=== PATIENT | female | born 1945 | race Two or more races ===

== ENCOUNTER → 2019-03-21 | Outpatient (CLI) | payer OTHER ==
[2018-05-03 14:36] VITALS: BP 178/98
[~2019-03-21] MED LIST: AMIT25TA PO; AMLO2.5T5 PO; CLON0.5T11 PO; DICY10CA53 PO; HYDR10SY16 PO; HYDR30CR60 RC; LORA10TA3 PO; OMEP40CA5 PO; PENT100C PO; POTA10TA12 PO; RANI-376 PO; TRAM50TA PO
--- NOTE | 2019-03-21 16:48 | RAD ---
EXAM: Thyroid sonogram. HISTORY: Thyroid nodule. TECHNIQUE: Sonographic imaging of the thyroid was performed. COMPARISON: CT dated 05/03/2018. FINDINGS: The right there are lobe measures 5.3 x 2.0 x 1.9 cm. The left thyroid lobe measures 4.6 x 1.7 x 1.6 cm. The isthmus measures 2 mm. The thyroid parenchyma is diffusely heterogeneous and contains small cysts and nodules. The largest nodule is hypoechoic and within the mid inferior left thyroid lobe measuring 12 x 8 x 10 mm. There are several thyroid calcifications. IMPRESSION: Diffusely heterogeneous thyroid containing multiple small nodules and calcifications. The largest is solid nodule is seen on the left measuring 12 mm. This is minimally increased compared to the prior neck CT, allowing for differences in imaging modality. Electronically signed by: Janina Hernadez MD (03/21/2019 4:44 PM) [facility]
== END | disposition home or self-care (01) ==
LOC: US 15:40
PROVIDERS: ATTEND Specialist
DX: E04.2 Nontoxic multinodular goiter (principal)
CPT/HCPCS: 76536

== ENCOUNTER 2019-08-15 11:12 | Inpatient (IN) | payer OTHER ==
[~2019-08-15] VITALS: Ht 165.1 cm; Wt 52.2 kg
[~2019-08-15 11:12] MED LIST changes: +CLON-77 PO; -CLON0.5T11 PO; +HYDR12.59 PO; +METO-239 PO; +OMEP40CA45 PO; -OMEP40CA5 PO; +POTASSIUM CHLO10 ME1 PO
[2019-08-15] MEDS ORDERED: IV NORMAL SALINE 1000ML BAG 1,000 ML IV ONE (12:00)
--- NOTE | 2019-08-15 12:19 | PHYS DOC ---
Past Medical History Past Medical History: CAD, GERD, Hypertension, P.U.D., Renal Disease Additional Past Medical Histor: Blindness , GASTRITIS Past Surgical History: Pacemaker Additional Past Surgical Histo: EGD Alcohol Use: None Drug Use: None Adult General Chief Complaint Chief Complaint: WEAKNESS/GENERALIZED HPI HPI 74-year-old female presents with family members report multiple syncopal episodes over the last 2-3 days. Patient also reports generalized weakness. Family reports they were able to catch her to prevent her from hitting her head. Patient does report some increased urinary incontinence. Reports some urinary urgency. Denies chest pain. Denies shortness of air or cough. Patient does report some subjective fever/chills. Reports mild abdominal discomfort. Denies nausea or vomiting. Review of Systems Review of Systems Constitutional: Reports subjective fever and chills Eyes: Denies redness or eye pain HENT: Denies nasal congestion or sore throat Respiratory: Denies cough or shortness of breath Cardiovascular: Denies chest pain or palpitations GI: Reports abdominal pain,; denies nausea or vomiting : Reports urinary incontinence and urinary urgency Musculoskeletal: Denies back pain or joint pain Integument: Denies rash or skin lesions Neurologic: Denies headache or sensory changes; reports syncope and generalized weakness Complete systems were reviewed and found to be within normal limits, except as documented in this note. Current Medications Current Medications Current Medications Medications (Trade) Dose Ordered Sig/Juan Manuel Start Time Stop Time Status Last Admin Dose Admin Sodium Chloride 1,000 ml @ 1,000 mls/hr 1X ONCE 08/15/19 12:00 08/15/19 12:59 DC 08/15/19 12:52 1,000 MLS/HR Allergies Allergies Allergies Coded Allergies Type Severity Reaction Last Updated Verified No Known Drug Allergies 06/09/15 No Physical Exam Physical Exam Constitutional: Well developed, well nourished, no acute distress, non-toxic appearance HENT: Normocephalic, atraumatic, oropharynx moist Eyes: EOMI, bilateral blindness (baseline), conjunctiva normal, no discharge Neck: Normal range of motion, no tenderness, supple Cardiovascular: Heart rate normal, regular rhythm Lungs & Thorax: Bilateral breath sounds clear to auscultation, no wheezing Abdomen: Soft, no tenderness Skin: Warm, dry, no erythema, no rash Extremities: No tenderness, ROM intact, no edema Neurologic: Alert and oriented X 3, normal motor function, normal sensory function, no focal deficits noted Psychologic: Affect normal, judgement normal Current Patient Data Lab Values Laboratory Tests Test 08/15/19 12:05 08/15/19 12:45 White Blood Count 10.1 x10^3/uL (4.0-11.0) Red Blood Count 4.22 x10^6/uL (3.50-5.40) Hemoglobin 12.5 g/dL (12.0-15.5) Hematocrit 37.2 % (36.0-47.0) Mean Corpuscular Volume 88 fL (79-100) Mean Corpuscular Hemoglobin 30 pg (25-35) Mean Corpuscular Hemoglobin Concent 34 g/dL (31-37) Red Cell Distribution Width 14.1 % (11.5-14.5) Platelet Count 213 x10^3/uL (140-400) Neutrophils (%) (Auto) 75 % (31-73) H Lymphocytes (%) (Auto) 9 % (24-48) L Monocytes (%) (Auto) 15 % (0-9) H Eosinophils (%) (Auto) 1 % (0-3) Basophils (%) (Auto) 0 % (0-3) Neutrophils # (Auto) 7.6 x10^3/uL (1.8-7.7) Lymphocytes # (Auto) 0.9 x10^3/uL (1.0-4.8) L Monocytes # (Auto) 1.5 x10^3/uL (0.0-1.1) H Eosinophils # (Auto) 0.1 x10^3/uL (0.0-0.7) Basophils # (Auto) 0.0 x10^3/uL (0.0-0.2) Prothrombin Time 12.1 SEC (11.7-14.0) Prothrombin Time INR 0.9 (0.8-1.1) Activated Partial Thromboplast Time 30 SEC (24-38) Sodium Level 131 mmol/L (136-145) L Potassium Level 3.7 mmol/L (3.5-5.1) Chloride Level 94 mmol/L (98-107) L Carbon Dioxide Level 26 mmol/L (21-32) Anion Gap 11 (6-14) Blood Urea Nitrogen 25 mg/dL (7-20) H Creatinine 1.6 mg/dL (0.6-1.0) H Estimated GFR (Cockcroft-Gault) 31.7 BUN/Creatinine Ratio 16 (6-20) Glucose Level 116 mg/dL (70-99) H Lactic Acid Level 1.6 mmol/L (0.4-2.0) Calcium Level 9.1 mg/dL (8.5-10.1) Magnesium Level 2.3 mg/dL (1.8-2.4) Total Bilirubin 0.6 mg/dL (0.2-1.0) Aspartate Amino Transferase (AST) 28 U/L (15-37) Alanine Aminotransferase (ALT) 24 U/L (14-59) Alkaline Phosphatase 79 U/L (46-116) Creatine Kinase 44 U/L (26-192) Creatine Kinase MB (Mass) 1.2 ng/mL (0.0-3.6) Creatine Kinase MB Relative Index % (0-4) Troponin I Quantitative < 0.017 ng/mL (0.000-0.055) Total Protein 7.3 g/dL (6.4-8.2) Albumin 3.0 g/dL (3.4-5.0) L Albumin/Globulin Ratio 0.7 (1.0-1.7) L Lipase 310 U/L (73-393) Urine Collection Type Unknown Urine Color Yellow Urine Clarity Clear Urine pH 6.5 Urine Specific [place] 1.010 Urine Protein Negative mg/dL (NEG-TRACE) Urine Glucose (UA) Negative mg/dL (NEG) Urine Ketones (Stick) Negative mg/dL (NEG) Urine Blood Negative (NEG) Urine Nitrite Negative (NEG) Urine Bilirubin Negative (NEG) Urine Urobilinogen Dipstick 0.2 mg/dL (0.2 mg/dL) Urine Leukocyte Esterase Negative (NEG) Urine RBC 0 /HPF (0-2) Urine WBC 0 /HPF (0-4) Urine Squamous Epithelial Cells Occ /LPF Urine Bacteria 0 /HPF (0-FEW) Laboratory Tests 08/15/19 12:05 Laboratory Tests 08/15/19 12:05 EKG EKG @1124 NSR at 82bpm, NO ST elevation, t wave inversion III and aVF, RBBB Radiology/Procedures Radiology/Procedures PROCEDURE: PORTABLE CHEST 1V EXAM: Chest, single view. HISTORY: Syncope. COMPARISON: 07/05/2019 FINDINGS: A frontal view of the chest is obtained. There is no infiltrate, pleural effusion or pneumothorax. There is stable enlargement of the cardiac silhouette, slightly accentuated due to portable technique. There is suspected left greater than right apical pleural parenchymal scarring. There is a cardiac pacemaker in expected position. IMPRESSION: No acute pulmonary finding. Electronically signed by: Janina Hernadez MD (08/15/2019 12:46 PM) [facility] PROCEDURE: CT HEAD AND CERVICAL SPINE WO CT HEAD AND CERVICAL SPINE WO Indication: Syncope. Weakness. Exposure: One or more of the following individualized dose reduction techniques were utilized for this examination: 1. Automated exposure control 2. Adjustment of the mA and/or kV according to patient size 3. Use of iterative reconstruction technique. Technique: Standard imaging without intravenous contrast. COMPARISON: July 05, 2019 Head: No evidence of acute intracranial hemorrhage, mass effect, midline shift or abnormal extra-axial fluid collection. Ventricles and sulci are symmetric. Bilateral symmetric basal ganglia calcifications are incidentally noted. Low-density in the white matter bilaterally, a nonspecific finding, but which is commonly due to chronic small vessel ischemic disease in a patient of this age. Generalized atrophy again seen. No evidence of large scalp hematoma. Orbits appear unremarkable. The visualized sinuses are clear. No evidence of depressed skull fracture. IMPRESSION: Chronic findings are similar. No evidence of acute intracranial hemorrhage. Cervical spine: The skull base appears intact. Ring of C1 is intact. Cervico-occipital junction is intact. C1 and C2 appears symmetric. No evidence of acute fracture or aggressive bone destruction. Vertebral body height is intact. No evidence of spondylolisthesis or vertebral subluxation. Facet joints appear intact without evidence of perched or locked facet joint. Mild degenerative spondylosis with loss of disc height. No evidence of high-grade central osseous spinal stenosis. There appears to be some neural foraminal narrowing at multiple levels. Coarse markings in the left upper lung, similar to what was seen on the prior cervical spine CT, likely scarring. No significant prevertebral soft tissue swelling or hematoma. The visualized airway appears grossly patent and midline. No dominant thyroid mass. IMPRESSION: Degenerative spondylosis. No evidence of acute fracture or traumatic subluxation. Electronically signed by: Jj Philip MD (08/15/2019 12:38 PM) [facility] Course & Med Decision Making Course & Med Decision Making Pertinent Labs and Imaging studies reviewed. (See chart for details) Patient presents with syncopal episodes over the last few days. Patient also reports some urinary urgency and incontinence. Patient neurologically at baseline. History of baseline blindness. NIH SS 0. EKG stable. Labs obtained and posted to chart. Creatinine elevated but baseline in comparison to prior values per [employer] review. UA without signs of infection. CXR stable. CT head/cervical spine without acute process. Patient requiring admission for further evaluation and treatment. Discussed with Dr. Fox (taking admits for Dr. Wu, who admits for PCP) who is in agreement with admission. Discussed findings and plan with patient and family, who acknowledge understanding and agreement. Dragon Disclaimer Dragon Disclaimer This electronic medical record was generated, in whole or in part, using a voice recognition dictation system. Departure Departure Impression: Primary Impression: Syncope Disposition: ADMITTED INPATIENT Admitting Physician: Madi. Sainz (taking admission for Dr. Wu (who admits for PCP)) Condition: STABLE Referrals: PILAR LOVELACE (PCP) NIHSS Stroke Scale NIH Stroke Scale: NIH Stroke Scale Response (Comments) Value Level of Consciousness: 0 Alert/Responsive 0 LOC Questions: 0 Answers both correctly 0 LOC Commands: 0 Performs both tasks 0 Best Gaze: 0 Normal 0 Visual: 0 No visual loss (Patient baseline blind ness) 0 Facial Palsy: 0 Normal, symmetrical 0 Motor - Left Arm 0 No drift 0 Motor - Right Arm 0 No drift 0 Motor - Left Leg 0 No drift 0 Motor: Right Leg 0 No drift 0 Limb Ataxia: 0 Absent 0 Sensory: 0 No loss 0 Best Language: 0 Normal 0 Dysathria: 0 Normal 0 Extinction and Inattention: 0 Normal 0 Total 0 Problem Qualifiers Primary Impression: Syncope Syncope type: unspecified Qualified Codes: R55 - Syncope and collapse JJ JUAREZ DO Aug 15, 2019 12:19
[2019-08-15 12:29] LABS: BASO % 0 % (0-3); EOS # 0.1 x10^3/uL (0.0-0.7); EOS % 1 % (0-3); HEMATOCRIT 37.2 % (36.0-47.0); HEMOGLOBIN 12.5 g/dL (12.0-15.5); LYMPH # 0.9 x10^3/uL (1.0-4.8); LYMPH % 9 % (24-48); MEAN CORPUSCULAR HEMOGLOBIN 30 pg (25-35); MEAN CORPUSCULAR HGB CONC 34 g/dL (31-37); MEAN CORPUSCULAR VOLUME 88 fL (79-100); MONO # 1.5 x10^3/uL (0.0-1.1); MONO % 15 % (0-9); NEUT # 7.6 x10^3/uL (1.8-7.7); NEUT % 75 % (31-73); PLATELET COUNT 213 x10^3/uL (140-400); RED BLOOD COUNT 4.22 x10^6/uL (3.50-5.40); RED CELL DISTRIBUTION WIDTH 14.1 % (11.5-14.5); WHITE BLOOD COUNT 10.1 x10^3/uL (4.0-11.0)
[2019-08-15 12:39] LABS: PROTHROMBIN TIME PATIENT 12.1 SEC (11.7-14.0)
--- NOTE | 2019-08-15 12:41 | RAD ---
CT HEAD AND CERVICAL SPINE WO Indication: Syncope. Weakness. Exposure: One or more of the following individualized dose reduction techniques were utilized for this examination: 1. Automated exposure control 2. Adjustment of the mA and/or kV according to patient size 3. Use of iterative reconstruction technique. Technique: Standard imaging without intravenous contrast. COMPARISON: July 05, 2019 Head: No evidence of acute intracranial hemorrhage, mass effect, midline shift or abnormal extra-axial fluid collection. Ventricles and sulci are symmetric. Bilateral symmetric basal ganglia calcifications are incidentally noted. Low-density in the white matter bilaterally, a nonspecific finding, but which is commonly due to chronic small vessel ischemic disease in a patient of this age. Generalized atrophy again seen. No evidence of large scalp hematoma. Orbits appear unremarkable. The visualized sinuses are clear. No evidence of depressed skull fracture. IMPRESSION: Chronic findings are similar. No evidence of acute intracranial hemorrhage. Cervical spine: The skull base appears intact. Ring of C1 is intact. Cervico-occipital junction is intact. C1 and C2 appears symmetric. No evidence of acute fracture or aggressive bone destruction. Vertebral body height is intact. No evidence of spondylolisthesis or vertebral subluxation. Facet joints appear intact without evidence of perched or locked facet joint. Mild degenerative spondylosis with loss of disc height. No evidence of high-grade central osseous spinal stenosis. There appears to be some neural foraminal narrowing at multiple levels. Coarse markings in the left upper lung, similar to what was seen on the prior cervical spine CT, likely scarring. No significant prevertebral soft tissue swelling or hematoma. The visualized airway appears grossly patent and midline. No dominant thyroid mass. IMPRESSION: Degenerative spondylosis. No evidence of acute fracture or traumatic subluxation. Electronically signed by: Jj Philip MD (08/15/2019 12:38 PM) [facility]
--- NOTE | 2019-08-15 12:48 | RAD ---
EXAM: Chest, single view. HISTORY: Syncope. COMPARISON: 07/05/2019 FINDINGS: A frontal view of the chest is obtained. There is no infiltrate, pleural effusion or pneumothorax. There is stable enlargement of the cardiac silhouette, slightly accentuated due to portable technique. There is suspected left greater than right apical pleural parenchymal scarring. There is a cardiac pacemaker in expected position. IMPRESSION: No acute pulmonary finding. Electronically signed by: Janina Hernadez MD (08/15/2019 12:46 PM) [place] [id number]
[2019-08-15 12:52] LABS: BILIRUBIN,URINE NEGATIVE (NEG); CLARITY,URINE CLEAR; COLOR,URINE YELLOW; NITRITE,URINE NEGATIVE (NEG); PH,URINE 6.5; PROTEIN,URINE NEGATIVE (NEG-TRACE); UROBILINOGEN,URINE 0.2 mg/dL (0.2 mg/dL)
[2019-08-15 12:58] LABS: CALCIUM 9.1 mg/dL (8.5-10.1); CREATININE 1.6 mg/dL (0.6-1.0); GFR 31.7
[2019-08-15 12:59] LABS: POTASSIUM 3.7 mmol/L (3.5-5.1)
[2019-08-15 13:03] LABS: ALBUMIN/GLOBULIN RATIO 0.7 (1.0-1.7); MAGNESIUM 2.3 mg/dL (1.8-2.4); TOTAL BILIRUBIN 0.6 mg/dL (0.2-1.0); TOTAL PROTEIN 7.3 g/dL (6.4-8.2)
--- NOTE | 2019-08-15 13:05 | EKG ---
[facility] [address] [place] [address] Test Date: 2019-08-15 Test Time: 11:24:48 Pat Name: TIM MOBLEY Department: Room: Gender: F Card Tender: : 1945 Requested By: JAYANT JUAREZ Order Number: [id number] Reading MD: Measurements Intervals [place] Rate: 81 P: 12 [place]: 164 QRS: -15 QRSD: 118 T: -16 QT: 388 QTc: 456 Interpretive Statements SINUS RHYTHM LEFT ATRIAL ABNORMALITY LEFTWARD AXIS INCOMPLETE RIGHT BUNDLE BRANCH BLOCK QRS(T) CONTOUR ABNORMALITY CONSISTENT WITH INFERIOR INFARCT AGE UNDETERMINED ABNORMAL ECG No previous ECG available for comparison
[2019-08-15 13:09] LABS: CREATINE KINASE 44 U/L (26-192)
[2019-08-15 13:13] LABS: SQUAMOUS EPITHELIAL CELL,UR OCC /LPF
[2019-08-15 13:14] LABS: BACTERIA,URINE 0 /HPF (0-FEW); RBC,URINE 0 /HPF (0-2); WBC,URINE 0 /HPF (0-4)
[2019-08-15] MEDS ORDERED: ONDANSETRON PF 4 MG/2 ML VIAL. IV PRN (14:00)
[2019-08-15] MEDS ORDERED: ASPIRIN 325 MG TABLET PO ONE (14:00)
[2019-08-15 16:01] VITALS: BP 171/73
[2019-08-15] MEDS ORDERED: PANT20TA2 PO (16:30)
[2019-08-15] MEDS ORDERED: AMIT25TA PO (16:30)
[2019-08-15] MEDS ORDERED: METO-239 PO (16:30)
[2019-08-15] MEDS: ACETAMINOPHEN 325 MG TABLET. PO PRN (17:49)
[2019-08-15] MEDS: IV NORMAL SALINE 1000ML BAG 1,000 ML IV SCH (17:50)
[2019-08-15 18:28] VITALS: BP 137/69
[2019-08-15 18:29] VITALS: BP_SYST 115; BP_SYST 150; BP_DIAS 68; BP_DIAS 80
--- NOTE | 2019-08-15 19:18 | PDOC2 ---
NEUROLOGY CONSULT Date of Admission Date of Admission DATE: 08/15/19 TIME: 19:02 Reason for Consult Reason for Consult: IMPRESSION: Syncopal spells. Dizziness. Falls. Generalized weakness. Hyponatremia. Renal insufficiency. CAD. HTN. Blindness. 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 Hypothyroidism? Pacemaker placement. RECOMMENDATIONS/PLAN: Carotid A US + Doppler. EEG. Lab: see orders . Consulted Cardiology. Treat medical diseases. OT/PT. Discussed with her son and [id number] at bedside on 08/15/19. HISTORY OF THE PRESENT ILLNESS: This is a 74-year-old female patient with above medical diseases has falls several times in the past 2 weeks. She was reportedly LOC for about 1-2 minutes but no shaking activity or postictal state. She stated she felt dizzy. She had similar episodes several months ago and was evaluated in [facility] and had pacemaker adjustment per her son. Patient also reports generalized weakness. Patient does report some increased urinary incontinence. Reports some urinary urgency. PAST MEDICAL HISTORY: CAD, GERD, Hypertension, P.U.D., Renal Disease, Blindness , GASTRITIS PAST SURGERY HISTORY: Pacemaker Placement, EGD ALLERGY: NKDA MEDICATIONS: Refer to [facility] FAMILY HISTORY: H Non contributory. SOCIAL HISTORY: Lives alone. Denies smoking, drinking, and illicit drug use. REVIEW OF SYSTEMS: Constitutional: No malnutrition, weight loss, cachexia. Head: No recent traumatic brain or head injury. Skin: No edema, or rash. Ear: No infection. Eyes: Blindness. Nose: No bleeding or purulent discharges. Hearing: Hearing decrease. Neck: No injury. Breast: No history of cancer, masses,or discharges. Cardiac: Pacemaker Placement, HTN. Pulmonary: No COPD. GI: GERD. Urinary/genital: UTI. Endocrinologic: No cousin face, craniofacial dysmorphism. Skeletomuscular: Generalized weakness. Neurological: see HP. Psychiatric: Denies drug use/abuse. Otherwise, not [id number] review of systems. PHYSICAL EXAMINATION: General appearance is in subacute distress. HEENT: Normocephalic and nontraumatic. Eyes, nose, ears, and throat are unremarkable. Neck is supple. No lymphadenopathy. No crepitus. Cardiovascular: S1, S2, regular rate and rhythm. Pulmonary: Clear to auscultation bilaterally. Abdomen: Bowel sounds are positive. Extremities: No rash, lesions, or edema. No restriction of range of motion NEUROLOGICAL EXAMINATION: Alert Oriented partially to time, place and person. PERRL. EOMI. CN: no focal findings. Muscle tone: within normal. Muscle strength: 5- DTR: 2 Plantar reflex: Flexor response bilaterally Gait: not examined in bed. Sensory exam: no abnormal findings. No other cerebellar signs elicited. F-T-N test not performed due to blindness. Current Medications Current Medications Current Medications Sodium Chloride 1,000 ml @ 1,000 mls/hr 1X ONCE IV Last administered on 08/15/19at 12:52; Start 08/15/19 at 12:00; Stop 08/15/19 at 12:59; Status DC Aspirin (Clifford Aspirin) 325 mg 1X ONCE PO Last administered on 08/15/19at 15:03; Start 08/15/19 at 14:00; Stop 08/15/19 at 14:01; Status DC Ondansetron HCl (Zofran) 4 mg PRN Q8HRS PRN IV NAUSEA/VOMITING; Start 08/15/19 at 14:00; Stop 08/16/19 at 13:59 Sodium Chloride 1,000 ml @ 75 mls/hr [id number] IV Last administered on 08/15/19at 17:50; Start 08/15/19 at 17:45 Acetaminophen (Tylenol) 650 mg PRN Q4HRS PRN PO MILD PAIN 1-3 Last administered on 08/15/19at 17:49; Start 08/15/19 at 17:45 Active Scripts Active Reported Amitriptyline Hcl 25 Mg Tablet 1 Tab PO PRN QHS Protonix (Pantoprazole Sodium) 20 Mg Tablet.dr 2 Tab PO DAILY Metoprolol Succinate ( Xl ) (Metoprolol Succinate) 25 Mg Tab.er.24h 2 Tab PO DAILY Allergies Allergies: Allergies Coded Allergies Type Severity Reaction Last Updated Verified No Known Drug Allergies 06/09/15 No ROS Review of System The patient denies any associated fevers, chills, headache, ear pain, rhinorrhea, sore throat, stiff neck, productive cough, chest pain, shortness of breath, back or flank pain, abdominal pain, nausea, vomiting, diarrhea, constipation, dysuria, rash, numbness, weakness, tingling, incontinence, difficulty ambulating, or diaphoresis. Physical Exam Physical Exam General: Well developed, well nourished, no acute distress, well appearing HEENT: Pupils equally round and reactive to light, EOMI, no discharge, normal conjunctiva Neck: Supple, no nuchal rigidity, no JVD, trachea midline, no tenderness Cardiac: RRR, no murmurs, no gallops, no rubs Chest/Lungs: CTAB, no wheeze, no rhonchi, no crackles Abdomen: soft, non-distended, no guarding, no peritoneal signs, non-tender Back: No tenderness Extremities: no edema, pulses intact, non-tender,capillary refill <3 sec bilateral upper and lower extremities, Neuro: Alert and oriented x 4, no focal deficits, normal speech Vitals Vitals: Vital Signs Date Time Temp Pulse Resp B/P (MAP) Pulse Ox O2 Delivery O2 Flow Rate FiO2 08/15/19 18:29 90 115/68 (84) 08/15/19 16:01 98.1 18 93 Room Air 98.1 Labs Labs Laboratory Tests Test 08/15/19 12:05 08/15/19 12:45 08/15/19 16:34 White Blood Count 10.1 x10^3/uL (4.0-11.0) Red Blood Count 4.22 x10^6/uL (3.50-5.40) Hemoglobin 12.5 g/dL (12.0-15.5) Hematocrit 37.2 % (36.0-47.0) Mean Corpuscular Volume 88 fL (79-100) Mean Corpuscular Hemoglobin 30 pg (25-35) Mean Corpuscular Hemoglobin Concent 34 g/dL (31-37) Red Cell Distribution Width 14.1 % (11.5-14.5) Platelet Count 213 x10^3/uL (140-400) Neutrophils (%) (Auto) 75 % (31-73) Lymphocytes (%) (Auto) 9 % (24-48) Monocytes (%) (Auto) 15 % (0-9) Eosinophils (%) (Auto) 1 % (0-3) Basophils (%) (Auto) 0 % (0-3) Neutrophils # (Auto) 7.6 x10^3/uL (1.8-7.7) Lymphocytes # (Auto) 0.9 x10^3/uL (1.0-4.8) Monocytes # (Auto) 1.5 x10^3/uL (0.0-1.1) Eosinophils # (Auto) 0.1 x10^3/uL (0.0-0.7) Basophils # (Auto) 0.0 x10^3/uL (0.0-0.2) Prothrombin Time 12.1 SEC (11.7-14.0) Prothromb Time International Ratio 0.9 (0.8-1.1) Activated Partial Thromboplast Time 30 SEC (24-38) Sodium Level 131 mmol/L (136-145) Potassium Level 3.7 mmol/L (3.5-5.1) Chloride Level 94 mmol/L (98-107) Carbon Dioxide Level 26 mmol/L (21-32) Anion Gap 11 (6-14) Blood Urea Nitrogen 25 mg/dL (7-20) Creatinine 1.6 mg/dL (0.6-1.0) Estimated GFR (Cockcroft-Gault) 31.7 BUN/Creatinine Ratio 16 (6-20) Glucose Level 116 mg/dL (70-99) Lactic Acid Level 1.6 mmol/L (0.4-2.0) Calcium Level 9.1 mg/dL (8.5-10.1) Magnesium Level 2.3 mg/dL (1.8-2.4) Total Bilirubin 0.6 mg/dL (0.2-1.0) Aspartate Amino Transf (AST/SGOT) 28 U/L (15-37) Alanine Aminotransferase (ALT/SGPT) 24 U/L (14-59) Alkaline Phosphatase 79 U/L (46-116) Creatine Kinase 44 U/L (26-192) Creatine Kinase MB (Mass) 1.2 ng/mL (0.0-3.6) Creatine Kinase MB Relative Index % (0-4) Troponin I Quantitative < 0.017 ng/mL (0.000-0.055) < 0.017 ng/mL (0.000-0.055) Total Protein 7.3 g/dL (6.4-8.2) Albumin 3.0 g/dL (3.4-5.0) Albumin/Globulin Ratio 0.7 (1.0-1.7) Lipase 310 U/L (73-393) Urine Collection Type Unknown Urine Color Yellow Urine Clarity Clear Urine pH 6.5 Urine Specific [place] 1.010 Urine Protein Negative mg/dL (NEG-TRACE) Urine Glucose (UA) Negative mg/dL (NEG) Urine Ketones (Stick) Negative mg/dL (NEG) Urine Blood Negative (NEG) Urine Nitrite Negative (NEG) Urine Bilirubin Negative (NEG) Urine Urobilinogen Dipstick 0.2 mg/dL (0.2 mg/dL) Urine Leukocyte Esterase Negative (NEG) Urine RBC 0 /HPF (0-2) Urine WBC 0 /HPF (0-4) Urine Squamous Epithelial Cells Occ /LPF Urine Bacteria 0 /HPF (0-FEW) Laboratory Tests Test 08/15/19 12:05 08/15/19 12:45 08/15/19 16:34 White Blood Count 10.1 x10^3/uL (4.0-11.0) Red Blood Count 4.22 x10^6/uL (3.50-5.40) Hemoglobin 12.5 g/dL (12.0-15.5) Hematocrit 37.2 % (36.0-47.0) Mean Corpuscular Volume 88 fL (79-100) Mean Corpuscular Hemoglobin 30 pg (25-35) Mean Corpuscular Hemoglobin Concent 34 g/dL (31-37) Red Cell Distribution Width 14.1 % (11.5-14.5) Platelet Count 213 x10^3/uL (140-400) Neutrophils (%) (Auto) 75 % (31-73) Lymphocytes (%) (Auto) 9 % (24-48) Monocytes (%) (Auto) 15 % (0-9) Eosinophils (%) (Auto) 1 % (0-3) Basophils (%) (Auto) 0 % (0-3) Neutrophils # (Auto) 7.6 x10^3/uL (1.8-7.7) Lymphocytes # (Auto) 0.9 x10^3/uL (1.0-4.8) Monocytes # (Auto) 1.5 x10^3/uL (0.0-1.1) Eosinophils # (Auto) 0.1 x10^3/uL (0.0-0.7) Basophils # (Auto) 0.0 x10^3/uL (0.0-0.2) Prothrombin Time 12.1 SEC (11.7-14.0) Prothromb Time International Ratio 0.9 (0.8-1.1) Activated Partial Thromboplast Time 30 SEC (24-38) Sodium Level 131 mmol/L (136-145) Potassium Level 3.7 mmol/L (3.5-5.1) Chloride Level 94 mmol/L (98-107) Carbon Dioxide Level 26 mmol/L (21-32) Anion Gap 11 (6-14) Blood Urea Nitrogen 25 mg/dL (7-20) Creatinine 1.6 mg/dL (0.6-1.0) Estimated GFR (Cockcroft-Gault) 31.7 BUN/Creatinine Ratio 16 (6-20) Glucose Level 116 mg/dL (70-99) Lactic Acid Level 1.6 mmol/L (0.4-2.0) Calcium Level 9.1 mg/dL (8.5-10.1) Magnesium Level 2.3 mg/dL (1.8-2.4) Total Bilirubin 0.6 mg/dL (0.2-1.0) Aspartate Amino Transf (AST/SGOT) 28 U/L (15-37) Alanine Aminotransferase (ALT/SGPT) 24 U/L (14-59) Alkaline Phosphatase 79 U/L (46-116) Creatine Kinase 44 U/L (26-192) Creatine Kinase MB (Mass) 1.2 ng/mL (0.0-3.6) Creatine Kinase MB Relative Index % (0-4) Troponin I Quantitative < 0.017 ng/mL (0.000-0.055) < 0.017 ng/mL (0.000-0.055) Total Protein 7.3 g/dL (6.4-8.2) Albumin 3.0 g/dL (3.4-5.0) Albumin/Globulin Ratio 0.7 (1.0-1.7) Lipase 310 U/L (73-393) Urine Collection Type Unknown Urine Color Yellow Urine Clarity Clear Urine pH 6.5 Urine Specific [place] 1.010 Urine Protein Negative mg/dL (NEG-TRACE) Urine Glucose (UA) Negative mg/dL (NEG) Urine Ketones (Stick) Negative mg/dL (NEG) Urine Blood Negative (NEG) Urine Nitrite Negative (NEG) Urine Bilirubin Negative (NEG) Urine Urobilinogen Dipstick 0.2 mg/dL (0.2 mg/dL) Urine Leukocyte Esterase Negative (NEG) Urine RBC 0 /HPF (0-2) Urine WBC 0 /HPF (0-4) Urine Squamous Epithelial Cells Occ /LPF Urine Bacteria 0 /HPF (0-FEW) PILI MADDOX MD Aug 15, 2019 19:18
[2019-08-15 23:34] VITALS: BP 103/58
[2019-08-16] VITALS (8 sets, daily range): BP systolic 135–177; BP diastolic 58–92
[2019-08-16] MEDS: IV NORMAL SALINE 1000ML BAG 1,000 ML IV SCH ×2 (06:37→20:46)
[2019-08-16 07:15] LABS: BASO % 0 % (0-3); EOS # 0.1 x10^3/uL (0.0-0.7); EOS % 1 % (0-3); HEMOGLOBIN 10.8 g/dL (12.0-15.5); LYMPH # 0.9 x10^3/uL (1.0-4.8); LYMPH % 10 % (24-48); MEAN CORPUSCULAR HEMOGLOBIN 30 pg (25-35); MEAN CORPUSCULAR HGB CONC 34 g/dL (31-37); MEAN CORPUSCULAR VOLUME 89 fL (79-100); MONO # 1.4 x10^3/uL (0.0-1.1); MONO % 16 % (0-9); NEUT # 6.6 x10^3/uL (1.8-7.7); NEUT % 73 % (31-73); PLATELET COUNT 209 x10^3/uL (140-400)
[2019-08-16] MEDS: ACETAMINOPHEN 325 MG TABLET. PO PRN ×2 (07:15→15:19)
[2019-08-16 07:47] LABS: ALBUMIN 2.5 g/dL (3.4-5.0); ALBUMIN/GLOBULIN RATIO 0.7 (1.0-1.7); CALCIUM 8.4 mg/dL (8.5-10.1); CREATININE 1.4 mg/dL (0.6-1.0); POTASSIUM 3.4 mmol/L (3.5-5.1); TOTAL BILIRUBIN 0.6 mg/dL (0.2-1.0); TOTAL PROTEIN 6.3 g/dL (6.4-8.2)
[2019-08-16 07:57] LABS: CHOLESTEROL/HDL RATIO 3.4
--- NOTE | 2019-08-16 08:19 | RAD ---
Examination: DOPPLER CAROTID BILAT History: TIA, syncope Exam : Carotid Duplex with Grayscale Ultrasound and Spectral and Color Doppler Analysis: Findings: The common, internal and external carotid arteries were examined by grayscale, color and spectral Doppler ultrasound. There is no evidence of atherosclerotic disease or significant stenosis in the visualized vessels. Flow in both vertebral arteries was antegrade and normal. The following are the velocities and ratios in the carotid arteries on both sides: RIGHT ICA PV: 78 cm/sec RIGHT CCA PV: 142 cm/sec RIGHT ICA ED: 25 cm/sec RIGHT IC/CCPV: 0.99 RIGHT VERTEBRAL: antegrade flow LEFT ICA PV: 80cm/sec LEFT CCA PV: 82cm/sec LEFT ICA ED: 22cm/sec LEFT IC/CCPV: 1.05 LEFT VERTEBRAL: antegrade flow Mild intimal thickening is noted bilaterally involving the arterial vasculature. <50% ICA Stenosis: PSV < 125cm/s (EDV < 40cm/s; SVR < 2.0) 50-69% ICA Stenosis: PSV < 125-229cm/s (EDV 40-99cm/s; SVR 2.0-3.9) >70% ICA Stenosis: PSV > 230cm/s (EDV >100cm/s; SVR >4.0) Impression: No hemodynamically significant stenosis. No significant plaque. Mild intimal thickening. PQRS Compliance Statement - Stenosis calculations for CT, MR and conventional angiography are based upon measurement of the distal ICA diameter in accordance with the NASCET methodology. Stenosis calculations for carotid ultrasound studies are derived from validated velocity criteria which are known to correlate with the NASCET methodology. Electronically signed by: Sai Valero MD (08/16/2019 8:16 AM) [facility]
--- NOTE | 2019-08-16 09:42 | PDOC2 ---
SU MOURA ENTRY MANAGER 08/16/19 0942: CARDIAC CONSULT DATE OF CONSULT Date of Consult DATE: 08/16/19 TIME: 09:29 REASON FOR CONSULT Reason for Consult: syncope REFERRING PHYSICIAN Referring Physician: Ruddy SOURCE Source: Chart review, Patient HISTORY OF PRESENT ILLNESS HISTORY OF PRESENT ILLNESS This is a pleasant 74 yo female admitted for complains of passing out. Pt does not speak Georgian and taken care off by her son who speaks Georgian. Reports that in the last 3 days pt has been feeling weak and has not been drinking well. Also she does not use a walker despite being blind. She paseed out for 1-2 minutes 3x in the last 3 days. No injuries. She does have a pacemaker. No chest pain, palpitations or SOA complains. She sees cardiology. PAST MEDICAL HISTORY Past Medical History Cardiovascular: HTN, Syncope, Other (symptomatic bradycardia) CENTRAL NERVOUS SYSTEM: Other (No pertinent history) GI: GERD, Peptic Ulcer disease Heme/Onc: Anemia NOS Hepatobiliary: Other (?liver disease) Psych: No pertinent hx Musculoskeletal: Osteoarthritis Rheumatologic: No pertinent hx Infectious disease: No pertinent hx ENT: Other (blind) Renal/: No pertinent hx Endocrine: Other (thyroid nodules) Dermatology: No pe PAST SURGICAL HISTORY Past Surgical History: Pacemaker FAMILY HISTORY Family History: Hypertension SOCIAL HISTORY Smoke: No ALCOHOL: none Drugs: None Lives: with Family CURRENT MEDICATIONS CURRENT MEDICATIONS Current Medications Medications (Trade) Dose Ordered Sig/Juan Manuel Route PRN Reason Start Time Stop Time Status Last Admin Dose Admin Sodium Chloride 1,000 ml @ 1,000 mls/hr 1X ONCE IV 08/15/19 12:00 08/15/19 12:59 DC 08/15/19 12:52 Aspirin (Clifford Aspirin) 325 mg 1X ONCE PO 08/15/19 14:00 08/15/19 14:01 DC 08/15/19 15:03 Sodium Chloride 1,000 ml @ 75 mls/hr [id number] IV 08/15/19 17:45 08/16/19 06:37 Acetaminophen (Tylenol) 650 mg PRN Q4HRS PRN PO MILD PAIN 1-3 08/15/19 17:45 08/16/19 07:15 ALLERGIES ALLERGIES: Coded Allergies: No Known Drug Allergies (Unverified , 06/09/15) ROS Review of System limited due to language barrier, details per HPI PHYSICAL EXAM General: Alert, Oriented X3, Cooperative, No acute distress HEENT: Atraumatic, Mucous membr. moist/pink Lungs: Clear to auscultation, Normal air movement Heart: Regular rate (SR), Normal S1, Normal S2, No murmurs Abdomen: Soft, No tenderness Extremities: No cyanosis, No edema Skin: No breakdown, Other (generalized ecchymoses to UE) Neuro: Normal speech, Sensation intact Psych/Mental Status: Mental status NL, Mood NL MUSCULOSKELETAL: Osteoarthritic changes both hands VITALS/I&O VITALS/I&O: Vital Signs Date Time Temp Pulse Resp B/P (MAP) Pulse Ox O2 Delivery O2 Flow Rate FiO2 08/16/19 07:34 Room Air 08/16/19 07:00 98.9 81 16 160/77 (104) 98 98.9 I & O0 08/15/19 08/15/19 08/16/19 15:00 23:00 07:00 Intake Total 1000 ml 440 ml 1200 ml Output Total 200 ml Balance 1000 ml 240 ml 1200 ml LABS Lab: Laboratory Tests Test 08/15/19 12:05 08/15/19 12:45 08/15/19 16:34 08/15/19 19:40 White Blood Count 10.1 x10^3/uL (4.0-11.0) Red Blood Count 4.22 x10^6/uL (3.50-5.40) Hemoglobin 12.5 g/dL (12.0-15.5) Hematocrit 37.2 % (36.0-47.0) Mean Corpuscular Volume 88 fL (79-100) Mean Corpuscular Hemoglobin 30 pg (25-35) Mean Corpuscular Hemoglobin Concent 34 g/dL (31-37) Red Cell Distribution Width 14.1 % (11.5-14.5) Platelet Count 213 x10^3/uL (140-400) Neutrophils (%) (Auto) 75 % (31-73) H Lymphocytes (%) (Auto) 9 % (24-48) L Monocytes (%) (Auto) 15 % (0-9) H Eosinophils (%) (Auto) 1 % (0-3) Basophils (%) (Auto) 0 % (0-3) Neutrophils # (Auto) 7.6 x10^3/uL (1.8-7.7) Lymphocytes # (Auto) 0.9 x10^3/uL (1.0-4.8) L Monocytes # (Auto) 1.5 x10^3/uL (0.0-1.1) H Eosinophils # (Auto) 0.1 x10^3/uL (0.0-0.7) Basophils # (Auto) 0.0 x10^3/uL (0.0-0.2) Prothrombin Time 12.1 SEC (11.7-14.0) Prothrombin Time INR 0.9 (0.8-1.1) Activated Partial Thromboplast Time 30 SEC (24-38) Sodium Level 131 mmol/L (136-145) L Potassium Level 3.7 mmol/L (3.5-5.1) Chloride Level 94 mmol/L (98-107) L Carbon Dioxide Level 26 mmol/L (21-32) Anion Gap 11 (6-14) Blood Urea Nitrogen 25 mg/dL (7-20) H Creatinine 1.6 mg/dL (0.6-1.0) H Estimated GFR (Cockcroft-Gault) 31.7 BUN/Creatinine Ratio 16 (6-20) Glucose Level 116 mg/dL (70-99) H Lactic Acid Level 1.6 mmol/L (0.4-2.0) Calcium Level 9.1 mg/dL (8.5-10.1) Magnesium Level 2.3 mg/dL (1.8-2.4) Total Bilirubin 0.6 mg/dL (0.2-1.0) Aspartate Amino Transferase (AST) 28 U/L (15-37) Alanine Aminotransferase (ALT) 24 U/L (14-59) Alkaline Phosphatase 79 U/L (46-116) Creatine Kinase 45 U/L (26-192) Creatine Kinase MB (Mass) 1.2 ng/mL (0.0-3.6) Creatine Kinase MB Relative Index % (0-4) Troponin I Quantitative < 0.017 ng/mL (0.000-0.055) < 0.017 ng/mL (0.000-0.055) < 0.017 ng/mL (0.000-0.055) Total Protein 7.3 g/dL (6.4-8.2) Albumin 3.0 g/dL (3.4-5.0) L Albumin/Globulin Ratio 0.7 (1.0-1.7) L Lipase 310 U/L (73-393) Vitamin B12 Level 441 pg/mL (247-911) Urine Collection Type Unknown Urine Color Yellow Urine Clarity Clear Urine pH 6.5 Urine Specific [place] 1.010 Urine Protein Negative mg/dL (NEG-TRACE) Urine Glucose (UA) Negative mg/dL (NEG) Urine Ketones (Stick) Negative mg/dL (NEG) Urine Blood Negative (NEG) Urine Nitrite Negative (NEG) Urine Bilirubin Negative (NEG) Urine Urobilinogen Dipstick 0.2 mg/dL (0.2 mg/dL) Urine Leukocyte Esterase Negative (NEG) Urine RBC 0 /HPF (0-2) Urine WBC 0 /HPF (0-4) Urine Squamous Epithelial Cells Occ /LPF Urine Bacteria 0 /HPF (0-FEW) Test 08/16/19 05:53 White Blood Count 9.0 x10^3/uL (4.0-11.0) Red Blood Count 3.60 x10^6/uL (3.50-5.40) Hemoglobin 10.8 g/dL (12.0-15.5) L Hematocrit 32.0 % (36.0-47.0) L Mean Corpuscular Volume 89 fL (79-100) Mean Corpuscular Hemoglobin 30 pg (25-35) Mean Corpuscular Hemoglobin Concent 34 g/dL (31-37) Red Cell Distribution Width 14.0 % (11.5-14.5) Platelet Count 209 x10^3/uL (140-400) Neutrophils (%) (Auto) 73 % (31-73) Lymphocytes (%) (Auto) 10 % (24-48) L Monocytes (%) (Auto) 16 % (0-9) H Eosinophils (%) (Auto) 1 % (0-3) Basophils (%) (Auto) 0 % (0-3) Neutrophils # (Auto) 6.6 x10^3/uL (1.8-7.7) Lymphocytes # (Auto) 0.9 x10^3/uL (1.0-4.8) L Monocytes # (Auto) 1.4 x10^3/uL (0.0-1.1) H Eosinophils # (Auto) 0.1 x10^3/uL (0.0-0.7) Basophils # (Auto) 0.0 x10^3/uL (0.0-0.2) Sodium Level 136 mmol/L (136-145) Potassium Level 3.4 mmol/L (3.5-5.1) L Chloride Level 103 mmol/L (98-107) Carbon Dioxide Level 23 mmol/L (21-32) Anion Gap 10 (6-14) Blood Urea Nitrogen 19 mg/dL (7-20) Creatinine 1.4 mg/dL (0.6-1.0) H Estimated GFR (Cockcroft-Gault) 37.0 BUN/Creatinine Ratio 14 (6-20) Glucose Level 80 mg/dL (70-99) Calcium Level 8.4 mg/dL (8.5-10.1) L Total Bilirubin 0.6 mg/dL (0.2-1.0) Aspartate Amino Transferase (AST) 25 U/L (15-37) Alanine Aminotransferase (ALT) 21 U/L (14-59) Alkaline Phosphatase 75 U/L (46-116) Total Protein 6.3 g/dL (6.4-8.2) L Albumin 2.5 g/dL (3.4-5.0) L Albumin/Globulin Ratio 0.7 (1.0-1.7) L Triglycerides Level 82 mg/dL (0-150) Cholesterol Level 135 mg/dL (0-200) LDL Cholesterol, Calculated 79 mg/dL (0-100) VLDL Cholesterol, Calculated 16 mg/dL (0-40) Non-HDL Cholesterol Calculated 95 mg/dL (0-129) HDL Cholesterol 40 mg/dL (40-60) Cholesterol/HDL Ratio 3.4 Laboratory Tests 08/15/19 12:05 08/16/19 05:53 Laboratory Tests 08/15/19 12:05 08/16/19 05:53 ECHOCARDIOGRAM ECHOCARDIOGRAM <Conclusion> The left ventricular systolic function is normal and the ejection fraction is within normal range. The Ejection Fraction is 60-65%. The left ventricle is normal size. The left ventricle is hyperdynamic. There is grossly normal LV segmental wall motion. Technically difficult study. DATE: 07/05/19 1207 ASSESSMENT/PLAN ASSESSMENT/PLAN 1. Syncope: multifactorial suspect from dehydration, orthostasis, enecephalopathy with associated UTI, weakness and blindness 2. Multiple falls/weakness: no injuries. 3. HTN: mildly labile 4. PPM in situ: SR no arrhythmias. 5. Prerenal azotemia 6. Chronic RBBB 7. Hypothyroidism with thyroid multinodules: No coverage noted. noted TSH before at 11 Recommendations 1. Interrogate device. EEG pending per neurology 2. TSH 3. IVF and will recheck orthostatic readings. Mechanical compression are consideration pending reading. May continue BP regimen pending BP trend. 4. Discussed significantly with son. She will need a roller walker and further assistance and closer supervision as pt does not call for help when getting up NIGEL BENZ MD 08/17/19 1526: CARDIAC CONSULT ASSESSMENT/PLAN ASSESSMENT/PLAN Late entry for 08/16/2019 Pt. seen and examined. Agree with above [employer] note. She has orthostatic hypotension. No cardiac syncope. Needs to wear compression socks and use avoidance maneuvers Discussed with family and patient. Continue toprol XL and low dose amlodipine Use hydralazine prn for high BP. SU MOURA ENTRY MANAGER Aug 16, 2019 09:42 NIGEL BENZ MD Aug 17, 2019 15:26
[2019-08-16] MEDS ORDERED: POTASSIUM CHLORIDE 20 MEQ TABLET.ER. PO ONE (09:45)
[2019-08-16 10:24] LABS: FREE T4 1.11 ng/dL (0.76-1.46); THYROID STIM HORMONE (TSH) 10.394 uIU/mL (0.358-3.74)
[2019-08-16] MEDS: PANTOPRAZOLE 40 MG TABLET.DR. PO SCH (10:33)
[2019-08-16] MEDS: ASPIRIN CHEWABLE 81 MG TABLET. PO SCH (10:34)
--- NOTE | 2019-08-16 13:10 | HP ---
ADMIT DATE: 08/15/2019 HISTORY OF PRESENT ILLNESS: The patient is a 74-year-old female patient who was admitted through the Emergency Room with a complaint of multiple syncopal episodes over the last 2-3 days. She also reports generalized weakness. The family reported that they were able to catch her to prevent her from hitting her head. Does report increased urinary incontinence and some urinary urgency. Denied any chest pain, shortness of breath, cough. She was evaluated in the Emergency Room, has had extensive lab work, which showed that she has mild hyponatremia as well as acute kidney injury. Her creatinine is up to 1.6; however, her white cell count, hemoglobin, hematocrit and platelets were normal. Her prothrombin time, INR and aPTT were also normal. Urinalysis was essentially unremarkable. Her CT scan of the head and cervical spine showed that she has no evidence of acute intracranial hemorrhage, mass effect or midline shift or abnormal extraaxial fluid collection. Ventricles and sulci are symmetrical, bilateral symmetrical with a ganglion calcifications are evident and noted. She has low density in the white matter bilaterally and nonspecific finding, which is commonly due to chronic small vessel disease. She does have generalized atrophy, but no evidence of large scalp hematoma. Orbits, visualized sinuses are unremarkable. CT scan of the cervical spine showed degenerative spondylosis, no evidence of acute fracture or traumatic subluxation and she was admitted to CVICU for further evaluation and we did consult the neurologist as well as the cardiology team. PAST MEDICAL HISTORY: Significant for hypertension, gastroesophageal reflux disease, peptic ulcer disease, anemia as well as generalized osteoarthritis. She is blind and apparently has also hypothyroidism. PAST SURGICAL HISTORY: Significant for permanent pacemaker placement. FAMILY HISTORY: Significant for hypertension. SOCIAL HISTORY: She is and lives with her family. She does not smoke, drink alcohol or use any recreational drugs. Unfortunately, the patient and her does not speak Swiss and her son was not available when I examined her. PHYSICAL EXAMINATION: GENERAL: On arrival to the Emergency Room, the patient looked well and was clearly in no apparent respiratory distress. There was no pallor, jaundice, cyanosis or thyromegaly. No jugular venous distention. No limb edema. VITAL SIGNS: Her heart rate was 81, blood pressure 144/79, temperature was 98.1, respiratory rate was 18 and oxygen saturation was 94% on room air. HEAD, EYES, EARS, NOSE AND THROAT: Showed normocephalic, atraumatic. NECK: Supple. HEART: Showed normal first and second heart sounds. No gallop or murmur. CHEST: Clear to auscultation. No crepitation or rhonchi. ABDOMEN: Distended, soft, nontender. NEUROLOGIC: She is legally blind, but without any obvious lateralizing sign. She apparently is able to ambulate with a walker. 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 LABORATORY DATA: On admission showed a white cell count of 10,000, hemoglobin 12.5, hematocrit 37, MCV 88 and platelet count 213,000 with normal manual differential. Her chemistry showed a serum sodium 131, potassium 3.7, chloride 94, bicarbonate 26, anion gap of 11, BUN 25, creatinine 1.6, estimated GFR was 32 mL per minute. Her glucose was 116, calcium was 9.1, magnesium was 2.3. Total bilirubin, AST, ALT, alkaline phosphatase were normal. Total protein 7.3, albumin 3. Her prothrombin time, INR and aPTT were normal. Urinalysis was unremarkable. ASSESSMENT AND PLAN: The patient was admitted. We started her on IV fluid and has had her orthostatic measured yesterday and she was found to have marked postural hypotension with systolic pressure lying recently about 30 mmHg. She is currently on metoprolol succinate 25 mg. She takes 50 mg once a day, amlodipine, amitriptyline 25 mg once a day and Protonix 40 mg once a day. We will consult the Neurology as well as the cardiology team. She probably needs her pacemaker interrogated and check her EEG given that she has also episodes of loss of consciousness or syncope and urinary incontinence. PILAR PERRY MD DR: SALAZAR/risa JOB#: [id number] / [id number]
--- NOTE | 2019-08-16 14:28 | PDOC ---
PROGRESS NOTES Assessment Assessment Syncopal spells. Dizziness. Falls. Generalized weakness. Hyponatremia. Renal insufficiency. CAD. HTN. Blindness. 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 Hypothyroidism. Pacemaker placement. RECOMMENDATIONS/PLAN: Consulted Cardiology. Treat medical diseases. Treat hypothyroidism. OT/PT. Discussed with her at bedside on 08/16/19. HISTORY OF THE PRESENT ILLNESS: This is a 74-year-old female patient with above medical diseases has falls several times in the past 2 weeks. She was reportedly LOC for about 1-2 minutes but no shaking activity or postictal state. She stated she felt dizzy. She had similar episodes several months ago and was evaluated in [facility] and had pacemaker adjustment per her son. Patient also reports generalized weakness. Patient does report some increased urinary incontinence. Reports some urinary urgency. 08/16/19: No new symptoms. PAST MEDICAL HISTORY: CAD, GERD, Hypertension, P.U.D., Renal Disease, Blindness , GASTRITIS PAST SURGERY HISTORY: Pacemaker Placement, EGD ALLERGY: NKDA MEDICATIONS: Refer to MAR FAMILY HISTORY: H Non contributory. SOCIAL HISTORY: Lives alone. Denies smoking, drinking, and illicit drug use. REVIEW OF SYSTEMS: Constitutional: No malnutrition, weight loss, cachexia. Head: No recent traumatic brain or head injury. Skin: No edema, or rash. Ear: No infection. Eyes: Blindness. Nose: No bleeding or purulent discharges. Hearing: Hearing decrease. Neck: No injury. Breast: No history of cancer, masses,or discharges. Cardiac: Pacemaker Placement, HTN. Pulmonary: No COPD. GI: GERD. Urinary/genital: UTI. Endocrinologic: No cousin face, craniofacial dysmorphism. Skeletomuscular: Generalized weakness. Neurological: see HP. Psychiatric: Denies drug use/abuse. Otherwise, not [id number] review of systems. PHYSICAL EXAMINATION: General appearance is in subacute distress. HEENT: Normocephalic and nontraumatic. Eyes, nose, ears, and throat are unremarkable. Neck is supple. No lymphadenopathy. No crepitus. Cardiovascular: S1, S2, regular rate and rhythm. Pulmonary: Clear to auscultation bilaterally. Abdomen: Bowel sounds are positive. Extremities: No rash, lesions, or edema. No restriction of range of motion NEUROLOGICAL EXAMINATION: Awake. Oriented partially to time, place and person. PERRL. EOMI. CN: no focal findings. Muscle tone: within normal. Muscle strength: 5- DTR: 2 Plantar reflex: Flexor response bilaterally Gait: not examined in bed. Sensory exam: no abnormal findings. No other cerebellar signs elicited. F-T-N test not performed due to blindness. Objective Objective Vital Signs Date Time Temp Pulse Resp B/P (MAP) Pulse Ox O2 Delivery O2 Flow Rate FiO2 08/16/19 11:15 82 135/76 (95) 08/16/19 11:11 98.9 16 98 Room Air 98.9 Intake and Output 08/16/19 06:59 Intake Total 2640 ml Output Total 200 ml Balance 2440 ml Intake Oral 740 ml IV Total 1900 ml Output Urine Total 200 ml # Voids 2 # Bowel Movements 2 Vitals Signs Vitals VS - Last 72 Hours, by Label Date Time Temp Pulse Resp B/P (MAP) Pulse Ox O2 Delivery O2 Flow Rate FiO2 08/16/19 11:15 82 135/76 (95) 08/16/19 11:11 98.9 16 98 Room Air 98.9 08/16/19 11:05 66 166/92 (116) 08/16/19 11:00 64 176/75 (108) 08/16/19 07:34 Room Air 08/16/19 07:00 98.9 81 16 160/77 (104) 98 Room Air 98.9 08/16/19 02:45 98.0 69 18 157/58 (91) 95 Room Air 98.0 08/15/19 23:34 97.9 79 20 103/58 (73) 94 Room Air 97.9 08/15/19 20:16 Room Air 08/15/19 18:29 90 115/68 (84) 08/15/19 18:29 88 150/80 (103) 08/15/19 18:28 92 137/69 (91) 08/15/19 16:01 98.1 86 18 171/73 (105) 93 Room Air 98.1 08/15/19 16:00 Room Air 08/15/19 14:00 70 95 08/15/19 13:30 72 95 08/15/19 13:00 70 94 08/15/19 12:30 76 95 08/15/19 12:00 80 93 08/15/19 12:00 98.1 81 18 144/79 (100) 94 Room Air 98.1 08/15/19 11:30 82 95 Laboratory Laboratory Laboratory Tests Test 08/15/19 16:34 08/15/19 19:40 08/16/19 05:53 Troponin I Quantitative < 0.017 ng/mL (0.000-0.055) < 0.017 ng/mL (0.000-0.055) White Blood Count 9.0 x10^3/uL (4.0-11.0) Red Blood Count 3.60 x10^6/uL (3.50-5.40) Hemoglobin 10.8 g/dL (12.0-15.5) Hematocrit 32.0 % (36.0-47.0) Mean Corpuscular Volume 89 fL (79-100) Mean Corpuscular Hemoglobin 30 pg (25-35) Mean Corpuscular Hemoglobin Concent 34 g/dL (31-37) Red Cell Distribution Width 14.0 % (11.5-14.5) Platelet Count 209 x10^3/uL (140-400) Neutrophils (%) (Auto) 73 % (31-73) Lymphocytes (%) (Auto) 10 % (24-48) Monocytes (%) (Auto) 16 % (0-9) Eosinophils (%) (Auto) 1 % (0-3) Basophils (%) (Auto) 0 % (0-3) Neutrophils # (Auto) 6.6 x10^3/uL (1.8-7.7) Lymphocytes # (Auto) 0.9 x10^3/uL (1.0-4.8) Monocytes # (Auto) 1.4 x10^3/uL (0.0-1.1) Eosinophils # (Auto) 0.1 x10^3/uL (0.0-0.7) Basophils # (Auto) 0.0 x10^3/uL (0.0-0.2) Sodium Level 136 mmol/L (136-145) Potassium Level 3.4 mmol/L (3.5-5.1) Chloride Level 103 mmol/L (98-107) Carbon Dioxide Level 23 mmol/L (21-32) Anion Gap 10 (6-14) Blood Urea Nitrogen 19 mg/dL (7-20) Creatinine 1.4 mg/dL (0.6-1.0) Estimated GFR (Cockcroft-Gault) 37.0 BUN/Creatinine Ratio 14 (6-20) Glucose Level 80 mg/dL (70-99) Calcium Level 8.4 mg/dL (8.5-10.1) Total Bilirubin 0.6 mg/dL (0.2-1.0) Aspartate Amino Transf (AST/SGOT) 25 U/L (15-37) Alanine Aminotransferase (ALT/SGPT) 21 U/L (14-59) Alkaline Phosphatase 75 U/L (46-116) Total Protein 6.3 g/dL (6.4-8.2) Albumin 2.5 g/dL (3.4-5.0) Albumin/Globulin Ratio 0.7 (1.0-1.7) Triglycerides Level 82 mg/dL (0-150) Cholesterol Level 135 mg/dL (0-200) LDL Cholesterol, Calculated 79 mg/dL (0-100) VLDL Cholesterol, Calculated 16 mg/dL (0-40) Non-HDL Cholesterol Calculated 95 mg/dL (0-129) HDL Cholesterol 40 mg/dL (40-60) Cholesterol/HDL Ratio 3.4 Thyroid Stimulating Hormone (TSH) 10.394 uIU/mL (0.358-3.74) Free Thyroxine 1.11 ng/dL (0.76-1.46) Medication Medications Current Medications Acetaminophen (Tylenol) 650 mg PRN Q4HRS PRN PO MILD PAIN 1-3 Last administered on 08/16/19at 07:15; Start 08/15/19 at 17:45 Amitriptyline HCl (Elavil) 25 mg QHS PO ; Start 08/16/19 at 21:00 Aspirin (Children'S Aspirin) 81 mg [id number] PO Last administered on 08/16/19at 10:34; Start 08/16/19 at 08:00 Metoprolol Succinate (Toprol Xl) 50 mg DAILY PO ; Start 08/16/19 at 11:00 Pantoprazole Sodium (Protonix) 40 mg DAILYAC PO Last administered on 08/16/19at 10:33; Start 08/16/19 at 11:30 Potassium Chloride (Klor-Con) 20 meq 1X ONCE PO Last administered on 08/16/19at 10:33; Start 08/16/19 at 09:45; Stop 08/16/19 at 09:46; Status DC Sodium Chloride 1,000 ml @ 100 mls/hr Q10H IV Last administered on 08/16/19at 06:37; Start 08/15/19 at 17:45 Comment Review of Relevant I have reviewed the following items hailey (where applicable) has been applied. PILI MADDOX MD Aug 16, 2019 14:28
[2019-08-16] MEDS: METOPROLOL SUCC 24HR ER 50 MG TAB.ER.24H. PO SCH (17:48)
[2019-08-16] MEDS: AMITRIPTYLINE HCL 25 MG TABLET. PO SCH (20:47)
--- NOTE | 2019-08-16 21:06 | EEG ---
DATE OF SERVICE: 08/16/2019 EEG NUMBER: [id number]. OBJECTIVE: This is a 74-year-old female patient with history of syncopal spells. EEG was requested to help rule out seizure. METHODS: Twenty electrodes were applied according to the international 10-20 electrode placement system. EKG monitoring, hyperventilation, intermittent photic stimulation, monopolar and bipolar montages are routinely utilized. The record was obtained on a digital system with video monitoring. FINDINGS: 1. Background: The patient was recorded in the awake and drowsy states. No actual sleep state was recorded. The overall background amplitude is 10-20 microvolts. A posterior dominant rhythm of 8 Hz is observed. 2. Abnormalities: No specific epileptiform discharge or electrographic seizure is seen. No focal or diffuse slowing. 3. Activation: Hyperventilation was performed with poor efforts. Intermittent photic stimulation was performed with photic driving. No specific epileptiform discharge or electrographic seizure induced by hyperventilation or intermittent photic stimulation. IMPRESSION: This EEG is within the normal limits of the study for the awake and drowsy states. No actual sleep state was recorded. No focal, lateralizing, specific epileptiform discharge or electrographic seizure is seen. PILI MADDOX MD DR: SKYE/risa JOB#: [id number] / [id number] RON
[2019-08-17] VITALS (9 sets, daily range): BP systolic 115–172; BP diastolic 58–97
[2019-08-17] MEDS ORDERED: amLODIPine BESYLATE 5 MG TABLET PO ONE
--- NOTE | 2019-08-17 00:39 | PN ---
DATE: 08/16/2019 SUBJECTIVE: The patient is a 74-year-old female patient who was admitted yesterday with recurrent syncopal episode. She has marked postural hypertension. She was definitely dehydrated. We did start her on IV fluid. Her BUN is down to 19 from 25, creatinine down from 1.4-1.6. Her lab work showed that she is hypothyroid, TSH of 10.394. She is not on any Synthroid for. 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 OBJECTIVE: GENERAL: When I examined her this morning, she looked pale, but no jaundice, cyanosis or thyromegaly. No jugular venous distention. No limb edema. VITAL SIGNS: Her heart rate was 82, blood pressure was 135/76, temperature was 98.9, respiratory rate was 16, and oxygen saturation was 98% on room air. HEAD, EYES, EARS, NOSE AND THROAT: Showed normocephalic, atraumatic. NECK: Supple. HEART: Showed normal first and second heart sounds with no gallop, rub or murmur. CHEST: Clear to auscultation. No crepitation or rhonchi. ABDOMEN: Distended, soft, nontender. NEUROLOGIC: She is blind; however, all other cranial nerves are intact. She moves extremities without difficulty. Her intake over the last 24 hours was 2614, output was recorded. LABORATORY DATA: Her lab work this morning showed a white cell count 9000, hemoglobin 11, hematocrit 32, MCV 89 and platelet count 209,000. Her chemistry showed a serum sodium 136, potassium 3.4, chloride 103, bicarbonate 23, anion gap of 10, BUN 19, creatinine 1.4, estimated GFR was 37 mL per minute. Her glucose was 80, calcium was 8.4. Total bilirubin, AST, ALT, alkaline phosphatase were normal. Total protein was 6.3, albumin 2.5. Serum triglycerides were 82. Total cholesterol 135, LDL was 79, VLDL was 16, HDL was 40 and the ratio was 3.4. Her vitamin B12 was 441 pg/mL, free T4 was normal at 1.11, normal range was 0.76-1.46. Her TSH was high at 10.394 indicating that she has subclinical hypothyroidism. ASSESSMENT: In summary, this is a 74-year-old female patient who was admitted with recurrent syncopal episode. She has also episodes of urinary incontinence. However, there is no evidence of tonic-clonic seizures. We did consult the neurologist and apparently had had an EEG, the result of which is still pending. She has a pacemaker that needs to be obviously interrogated. We will continue with IV rehydration and we will check her orthostatics frequently and apparently she has had an echocardiogram, which showed that she has ejection fraction that is normal at 60-65%. I will also check her morning cortisol as she seemed clinically cushingoid. PILAR PERRY MD DR: SALAZAR/risa JOB#: [id number] / [id number]
[2019-08-17] MEDS: IV NORMAL SALINE 1000ML BAG 1,000 ML IV SCH (03:59)
[2019-08-17] MEDS: ACETAMINOPHEN 325 MG TABLET. PO PRN ×2 (06:33→19:48)
[2019-08-17 07:22] LABS: CALCIUM 8.7 mg/dL (8.5-10.1); CREATININE 1.2 mg/dL (0.6-1.0); GFR 44.2; POTASSIUM 3.7 mmol/L (3.5-5.1)
[2019-08-17] MEDS: METOPROLOL SUCC 24HR ER 50 MG TAB.ER.24H. PO SCH (09:22)
[2019-08-17] MEDS: amLODIPine BESYLATE 5 MG TABLET PO SCH (09:22)
[2019-08-17] MEDS: PANTOPRAZOLE 40 MG TABLET.DR. PO SCH (09:22)
[2019-08-17] MEDS: ASPIRIN CHEWABLE 81 MG TABLET. PO SCH (09:23)
--- NOTE | 2019-08-17 10:23 | PN ---
DATE: 08/17/2019 SUBJECTIVE: The patient is sitting at the edge of the bed comfortably in no apparent distress. On questioning her, she continued to complain of headache and feeling things spinning around. PHYSICAL EXAMINATION: GENERAL: On examining her, however, she looked well and was clearly in no apparent respiratory distress, slightly pale, but no jaundice, cyanosis or thyromegaly. No jugular venous distention. No limb edema. VITAL SIGNS: Her heart rate was 79, blood pressure was 172/97, temperature of 98.7, respiratory rate 20 and oxygen saturation was 93%. HEAD, EYES, EARS, NOSE AND THROAT: Normocephalic, atraumatic. NECK: Supple. HEART: Showed normal first and second heart sounds. No gallop or murmur. CHEST: Clear to auscultation. No crepitation or rhonchi. ABDOMEN: Distended, soft, nontender. NEUROLOGIC: She is awake, alert, responding appropriately. All her cranial nerves are intact. She moves extremities without difficulty, although I have not seen her walking. Her intake over the last 24 hours was 2640, output was 200. LABORATORY DATA: As of this morning showed her serum sodium was 137, potassium 3.7, chloride 104, bicarbonate 21, anion gap of 12, BUN 11, creatinine 1.2. Estimated GFR was 44 mL per minute. Her glucose was 82, calcium was 8.7 and although TSH was high at 10.394. 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 Her urinalysis was unremarkable. She apparently has had an EEG done that was within normal limits for the study of the awake and drowsy state, no actual sleep state was recorded. No focal, lateralizing, specific epileptiform discharge or electrographic seizures seen. ASSESSMENT AND PLAN: This is a 74-year-old female patient who was admitted with recurrent syncopal episode together with episode of urinary incontinence. No evidence of tonic-clonic seizure. Her EEG was normal. Her pacemaker was interrogated and apparently was functioning well. She has acute on chronic kidney injury that is improving. Her creatinine came down from 1.6 to 1.2. She apparently continues to be hypertensive and apparently amlodipine was added to her metoprolol succinate. We will add elastic stockings and check again her orthostatic and if that has improved, likely due to dehydration, then she probably can be discharged. PILAR PERRY MD DR: Agnes JOB#: [id number] / [id number]
[2019-08-17] MEDS: AMITRIPTYLINE HCL 25 MG TABLET. PO SCH (19:48)
[2019-08-18] VITALS (9 sets, daily range): BP systolic 131–195; BP diastolic 68–99
[2019-08-18] MEDS: METOPROLOL SUCC 24HR ER 50 MG TAB.ER.24H. PO SCH (09:26)
[2019-08-18] MEDS: amLODIPine BESYLATE 5 MG TABLET PO SCH (09:26)
[2019-08-18] MEDS: PANTOPRAZOLE 40 MG TABLET.DR. PO SCH (09:26)
[2019-08-18] MEDS: ASPIRIN CHEWABLE 81 MG TABLET. PO SCH (09:27)
[2019-08-18] MEDS: ACETAMINOPHEN 325 MG TABLET. PO PRN ×2 (09:27→20:37)
--- NOTE | 2019-08-18 09:34 | PN ---
DATE: 08/18/2019 SUBJECTIVE: The patient is resting slightly propped up in bed, in no apparent distress. She apparently continues to complain of severe headache that has been chronic for which she was seen by other doctors before without any successful therapy. She continued to have also complained of dizziness when she stands. Her family stated that she is not using any walker or cane and walks without any assistance or assistive devices. PHYSICAL EXAMINATION: GENERAL: When I saw her today, she looked pale, not jaundiced, cyanosed or thyromegaly. No jugular venous distention. No limb edema. VITAL SIGNS: Her heart rate was 66, blood pressure was 195/97, temperature was 99, respiratory rate was 16 and oxygen saturation was 93%. HEAD, EYES, EARS, NOSE AND THROAT: Normocephalic, atraumatic. NECK: Supple. HEART: Showed normal first and second heart sounds. No gallop, rub or murmur. CHEST: Clear to auscultation. No crepitation or rhonchi. ABDOMEN: Distended, soft, nontender. NEUROLOGIC: She is awake, alert, responding appropriately. All her cranial nerves intact. She moves extremities without difficulty. LABORATORY DATA: Her lab work as of yesterday showed a serum sodium 137, potassium 3.7, chloride 104, bicarbonate 21, anion gap of 12, BUN 11, creatinine 1.2, estimated GFR was 44 mL per minute. Her glucose was 82, calcium was 8.7. Her white cell count was 9000, hemoglobin 11, hematocrit 32, MCV 89 and platelet count of 109,000. Prothrombin time, INR and aPTT were normal. Urinalysis was essentially unremarkable. She did have a CT scan of the head and cervical spine and a CT scan of the head showed no evidence of acute intracranial hemorrhage, mass effect, midline shift or abnormal extraaxial fluid collection. Ventricles and sulci are symmetric, bilateral symmetric basal ganglia calcifications are incidentally noted, low density in the white matter bilaterally a nonspecific finding, but which is commonly due to chronic small vessel ischemic disease in a patient of this age and generalized atrophy again seen. No evidence of large scalp hematoma. Orbits appear unremarkable. The visualized sinuses are clear. No evidence of depressed skull fracture. PLAN: My plan is to measure her orthostatics again and I also ordered another BMP, sed rate and CRP to rule out the possibility of polymyalgia rheumatica or giant cell arteritis as a cause of headache as her CT scan was unremarkable and we will decide on further management accordingly. PILAR PERRY MD DR: SALAZAR/risa JOB#: [id number] / [id number]
[2019-08-18 10:11] LABS: ALBUMIN/GLOBULIN RATIO 0.8 (1.0-1.7); CALCIUM 8.8 mg/dL (8.5-10.1); CREATININE 1.3 mg/dL (0.6-1.0); GFR 40.3; POTASSIUM 3.8 mmol/L (3.5-5.1); TOTAL BILIRUBIN 0.4 mg/dL (0.2-1.0); TOTAL PROTEIN 6.6 g/dL (6.4-8.2)
--- NOTE | 2019-08-18 11:55 | NUR ---
SS following for discharge planning. SS reviewed pt chart. Pt is from home with family and is currently on room air. PT recommended home at discharge. SS will continue to follow for discharge planning.
--- NOTE | 2019-08-18 13:49 | PDOC ---
PROGRESS NOTES Assessment Assessment Syncopal spells. Dizziness. Falls. Generalized weakness. Chronic headaches for many years. Hyponatremia. Renal insufficiency. CAD. HTN. Blindness. 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 Hypothyroidism. Pacemaker placement. RECOMMENDATIONS/PLAN: Consulted Cardiology. Treat medical diseases. Treat hypothyroidism. OT/PT. Discussed with her and son again at bedside on 08/18/19. HISTORY OF THE PRESENT ILLNESS: This is a 74-year-old female patient with above medical diseases has falls several times in the past 2 weeks. She was reportedly LOC for about 1-2 minutes but no shaking activity or postictal state. She stated she felt dizzy. She had similar episodes several months ago and was evaluated in [facility] and had pacemaker adjustment per her son. Patient also reports generalized weakness. Patient does report some increased urinary incontinence. Reports some urinary urgency. 08/18/19: No new symptoms. Her son reported that his mother has frequent chronic for many years. PAST MEDICAL HISTORY: CAD, GERD, Hypertension, P.U.D., Renal Disease, Blindness , GASTRITIS PAST SURGERY HISTORY: Pacemaker Placement, EGD ALLERGY: NKDA MEDICATIONS: Refer to [facility] HISTORY: H Non contributory. SOCIAL HISTORY: Lives alone. Denies smoking, drinking, and illicit drug use. REVIEW OF SYSTEMS: Constitutional: No malnutrition, weight loss, cachexia. Head: No recent traumatic brain or head injury. Skin: No edema, or rash. Ear: No infection. Eyes: Blindness. Nose: No bleeding or purulent discharges. Hearing: Hearing decrease. Neck: No injury. Breast: No history of cancer, masses,or discharges. Cardiac: Pacemaker Placement, HTN. Pulmonary: No COPD. GI: GERD. Urinary/genital: UTI. Endocrinologic: No cousin face, craniofacial dysmorphism. Skeletomuscular: Generalized weakness. Neurological: see HP. Psychiatric: Denies drug use/abuse. Otherwise, not [id number] review of systems. PHYSICAL EXAMINATION: General appearance is in subacute distress. HEENT: Normocephalic and nontraumatic. Eyes, nose, ears, and throat are unremarkable. Neck is supple. No lymphadenopathy. No crepitus. Cardiovascular: S1, S2, regular rate and rhythm. Pulmonary: Clear to auscultation bilaterally. Abdomen: Bowel sounds are positive. Extremities: No rash, lesions, or edema. No restriction of range of motion NEUROLOGICAL EXAMINATION: Drowsiness but easily arousable. Not oriented to time, but knew place and person. PERRL. EOMI. Minimal light receptions otherwise blindness bilaterally. CN: no focal findings. Muscle tone: within normal. Muscle strength: 5- DTR: 2 Plantar reflex: Flexor response bilaterally Gait: not examined in bed. Sensory exam: no abnormal findings. No other cerebellar signs elicited. F-T-N test not performed due to blindness. Objective Objective Vital Signs Date Time Temp Pulse Resp B/P (MAP) Pulse Ox O2 Delivery O2 Flow Rate FiO2 08/18/19 11:00 98.4 62 16 145/68 (93) 95 Room Air 98.4 Intake and Output 08/18/19 07:00 Intake Total 800 ml Output Total 600 ml Balance 200 ml Intake Oral 800 ml Output Urine Total 600 ml # Voids 6 Vitals Signs Vitals VS - Last 72 Hours, by Label Date Time Temp Pulse Resp B/P (MAP) Pulse Ox O2 Delivery O2 Flow Rate FiO2 08/18/19 11:00 98.4 62 16 145/68 (93) 95 Room Air 98.4 08/18/19 09:26 96 173/97 08/18/19 09:26 96 173/97 08/18/19 08:51 96 173/97 (122) 08/18/19 08:48 67 175/99 (124) 08/18/19 08:45 68 162/90 (114) 08/18/19 07:00 99.0 66 16 195/97 (129) 93 Room Air 99.0 08/18/19 03:00 98.6 64 16 167/80 (109) 96 Room Air 98.6 08/17/19 23:01 98.6 66 18 151/75 (100) 96 Room Air 98.6 08/17/19 19:55 Room Air 08/17/19 19:55 98.3 67 16 136/61 (86) 95 Room Air 98.3 08/17/19 15:00 98.5 62 16 115/58 (77) 95 Room Air 98.5 08/17/19 11:00 98.8 66 16 119/63 (81) 95 Room Air 98.8 08/17/19 11:00 98.8 66 16 119/63 (81) 95 Room Air 98.8 08/17/19 09:22 79 131/83 08/17/19 09:22 79 131/83 08/17/19 09:15 79 131/83 (99) 08/17/19 09:12 76 154/85 (108) 08/17/19 09:09 77 142/80 (100) 08/17/19 08:00 Room Air 08/17/19 07:00 98.7 61 18 154/69 (97) 91 Room Air 98.7 Laboratory Laboratory Laboratory Tests Test 08/18/19 09:29 Erythrocyte Sedimentation Rate 56 (0-25) Sodium Level 138 mmol/L (136-145) Potassium Level 3.8 mmol/L (3.5-5.1) Chloride Level 102 mmol/L (98-107) Carbon Dioxide Level 23 mmol/L (21-32) Anion Gap 13 (6-14) Blood Urea Nitrogen 9 mg/dL (7-20) Creatinine 1.3 mg/dL (0.6-1.0) Estimated GFR (Cockcroft-Gault) 40.3 BUN/Creatinine Ratio 7 (6-20) Glucose Level 94 mg/dL (70-99) Calcium Level 8.8 mg/dL (8.5-10.1) Total Bilirubin 0.4 mg/dL (0.2-1.0) Aspartate Amino Transf (AST/SGOT) 31 U/L (15-37) Alanine Aminotransferase (ALT/SGPT) 22 U/L (14-59) Alkaline Phosphatase 70 U/L (46-116) C-Reactive Protein, Quantitative 23.0 mg/L (0-3.3) Total Protein 6.6 g/dL (6.4-8.2) Albumin 3.0 g/dL (3.4-5.0) Albumin/Globulin Ratio 0.8 (1.0-1.7) Comment Review of Relevant I have reviewed the following items hailey (where applicable) has been applied. PILI MADDOX MD Aug 18, 2019 13:49
[2019-08-18] MEDS: AMITRIPTYLINE HCL 25 MG TABLET. PO SCH (20:37)
[2019-08-19 02:30] VITALS: BP 165/82
[2019-08-19 07:00] VITALS: BP 173/87
[2019-08-19] MEDS ORDERED: MECLIZINE HCL 12.5 MG TABLET. PO PRN (08:30)
[2019-08-19] MEDS: METOPROLOL SUCC 24HR ER 50 MG TAB.ER.24H. PO SCH (08:54)
[2019-08-19] MEDS: amLODIPine BESYLATE 5 MG TABLET PO SCH (08:55)
[2019-08-19] MEDS: PANTOPRAZOLE 40 MG TABLET.DR. PO SCH (08:55)
[2019-08-19] MEDS: ASPIRIN CHEWABLE 81 MG TABLET. PO SCH (08:55)
[2019-08-19] MEDS ORDERED: predniSONE 10 MG TABLET PO SCH (09:00)
[2019-08-19] MEDS ORDERED: MECL12.573 PO (10:58)
[2019-08-19] MEDS ORDERED: AMLO5TAB10 PO (11:00)
[2019-08-19 11:13] VITALS: BP 140/74
--- NOTE | 2019-08-19 13:18 | PDOC ---
PROGRESS NOTES Assessment Assessment Syncopal spells. Dizziness. Falls. Generalized weakness. Chronic headaches for many years. Hyponatremia. Renal insufficiency. CAD. HTN. Blindness. 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 Hypothyroidism. Pacemaker placement. RECOMMENDATIONS/PLAN: Consulted Cardiology. Treat medical diseases. Treat hypothyroidism. Repeat HCT w/o contrast. No MRI due to pacemaker. OT/PT. Discussed with her and son again at bedside on 08/19/19. HISTORY OF THE PRESENT ILLNESS: This is a 74-year-old female patient with above medical diseases has falls several times in the past 2 weeks. She was reportedly LOC for about 1-2 minutes but no shaking activity or postictal state. She stated she felt dizzy. She had similar episodes several months ago and was evaluated in [facility] and had pacemaker adjustment per her son. Patient also reports generalized weakness. Patient does report some increased urinary incontinence. Reports some urinary urgency. 08/18/19: No new symptoms. Her son reported that his mother has frequent chronic for many years. 08/19/19: Still has dizziness. PAST MEDICAL HISTORY: CAD, GERD, Hypertension, P.U.D., Renal Disease, Blindness , GASTRITIS PAST SURGERY HISTORY: Pacemaker Placement, EGD ALLERGY: NKDA MEDICATIONS: Refer to [facility]ILY HISTORY: H Non contributory. SOCIAL HISTORY: Lives alone. Denies smoking, drinking, and illicit drug use. REVIEW OF SYSTEMS: Constitutional: No malnutrition, weight loss, cachexia. Head: No recent traumatic brain or head injury. Skin: No edema, or rash. Ear: No infection. Eyes: Blindness. Nose: No bleeding or purulent discharges. Hearing: Hearing decrease. Neck: No injury. Breast: No history of cancer, masses,or discharges. Cardiac: Pacemaker Placement, HTN. Pulmonary: No COPD. GI: GERD. Urinary/genital: UTI. Endocrinologic: No cousin face, craniofacial dysmorphism. Skeletomuscular: Generalized weakness. Neurological: see HP. Psychiatric: Denies drug use/abuse. Otherwise, not [id number] review of systems. PHYSICAL EXAMINATION: General appearance is in subacute distress. HEENT: Normocephalic and nontraumatic. Eyes, nose, ears, and throat are unremarkable. Neck is supple. No lymphadenopathy. No crepitus. Cardiovascular: S1, S2, regular rate and rhythm. Pulmonary: Clear to auscultation bilaterally. Abdomen: Bowel sounds are positive. Extremities: No rash, lesions, or edema. No restriction of range of motion NEUROLOGICAL EXAMINATION: Awake. Not oriented to time, but knew place and person. PERRL. EOMI. Minimal light receptions otherwise blindness bilaterally. CN: no focal findings. Muscle tone: within normal. Muscle strength: 5- DTR: 2 Plantar reflex: Flexor response bilaterally Gait: not examined in bed. Sensory exam: no abnormal findings. No other cerebellar signs elicited. F-T-N test not performed due to blindness. Objective Objective Vital Signs Date Time Temp Pulse Resp B/P (MAP) Pulse Ox O2 Delivery O2 Flow Rate FiO2 08/19/19 11:13 98.2 61 18 140/74 (96) 93 Room Air 98.2 Intake and Output 08/19/19 07:00 Intake Total 780 ml Balance 780 ml Intake Oral 780 ml # Voids 1 Vitals Signs Vitals VS - Last 72 Hours, by Label Date Time Temp Pulse Resp B/P (MAP) Pulse Ox O2 Delivery O2 Flow Rate FiO2 08/19/19 11:13 98.2 61 18 140/74 (96) 93 Room Air 98.2 08/19/19 08:55 76 173/87 08/19/19 08:54 76 173/87 08/19/19 07:50 Room Air 08/19/19 07:00 98.4 76 16 173/87 (115) 98 Room Air 98.4 08/19/19 02:30 98.6 66 20 165/82 (109) 96 Room Air 98.6 08/18/19 22:39 98.0 59 20 131/94 (106) 97 Room Air 98.0 08/18/19 20:50 Room Air 08/18/19 19:56 98.1 67 18 154/90 (111) 96 Room Air 98.1 08/18/19 15:09 98.9 66 18 139/71 (93) 95 Room Air 98.9 08/18/19 11:00 98.4 62 16 145/68 (93) 95 Room Air 98.4 08/18/19 09:26 96 173/97 08/18/19 09:26 96 173/97 08/18/19 08:51 96 173/97 (122) 08/18/19 08:48 67 175/99 (124) 08/18/19 08:45 68 162/90 (114) 08/18/19 08:00 Room Air 08/18/19 07:00 99.0 66 16 195/97 (129) 93 Room Air 99.0 Medication Medications Current Medications Meclizine HCl (Antivert) 12.5 mg PRN Q6HRS PRN PO DIZZINESS Last administered on 08/19/19at 08:55; Start 08/19/19 at 08:30 Prednisone (Prednisone) 30 mg DAILY PO Last administered on 08/19/19at 08:55; Start 08/19/19 at 09:00 Comment Review of Relevant I have reviewed the following items hailey (where applicable) has been applied. PILI MADDOX MD Aug 19, 2019 13:18
--- NOTE | 2019-08-19 14:19 | RAD ---
Examination: CT HEAD WO CONTRAST History: Persistent dizziness and headaches Comparison/Correlation: 07/19/2019 CT head and cervical spine Findings: Axial images of the head were obtained without contrast. Mild atrophy present. No intracranial hemorrhage, midline shift, or mass effect. Visualized orbits are unremarkable. Bilateral basal gangliar calcification noted. Impression: No suspicious process. PQRS Compliance Statement: One or more of the following individualized dose reduction techniques were utilized for this examination: 1. Automated exposure control 2. Adjustment of the mA and/or kV according to patient size 3. Use of iterative reconstruction technique Electronically signed by: Sai Valero MD (08/19/2019 2:16 PM) [facility]
[2019-08-19 15:00] VITALS: BP 134/84
--- NOTE | 2019-08-19 16:09 | NUR ---
Discharge Note: ITZ,TIM H2 [place] Discharge instructions and discharge home medications reviewed with Family Member and a copy given. All questions have been answered and understanding verbalized. The following instructions and handouts were given: diet, follow up with [facility] and her primary, syncope, medications. Called scripts into [facility] per family instructions and add Bactrim ointment per Dr. Fox. Discontinued lines and drains: IV removed. no lines present on discharge. Patient discharged to home with family. left via wheelchair to son's private vehicle.
== END 2019-08-19 16:12 | disposition home or self-care (01) | DRG 73 ==
LOC: ER 11:12 → 2 NORTH 13:45
PROVIDERS: ADMIT Internal Medicine; ATTEND Internal Medicine
DX: G90.8 Other disorders of autonomic nervous system (principal); N17.0 Acute kidney failure with tubular necrosis; E87.1 Hypo-osmolality and hyponatremia; N39.0 Urinary tract infection, site not specified; I25.10 Atherosclerotic heart disease of native coronary artery without angina pectoris; K21.9 Gastro-esophageal reflux disease without esophagitis; E03.9 Hypothyroidism, unspecified; R32 Unspecified urinary incontinence; I45.10 Unspecified right bundle-branch block; R29.6 Repeated falls; E86.0 Dehydration; N18.9 Chronic kidney disease, unspecified; H54.8 Legal blindness, as defined in USA; I12.9 Hypertensive chronic kidney disease with stage 1 through stage 4 chronic kidney disease, or unspecified chronic kidney disease; I73.9 Peripheral vascular disease, unspecified; I95.1 Orthostatic hypotension; M15.9 Polyosteoarthritis, unspecified; M47.9 Spondylosis, unspecified; M67.40 Ganglion, unspecified site; Z87.11 Personal history of peptic ulcer disease; Z95.0 Presence of cardiac pacemaker; Z79.899 Other long term (current) drug therapy; Z82.49 Family history of ischemic heart disease and other diseases of the circulatory system
CPT/HCPCS: 36415; 70450; 71045; 72125; 80048; 80053; 80061; 81001; 82533; 82550; 82553; 82607; 83605; 83690; 83735; 84439; 84443; 84484; 85025; 85610; 85651; 85730; 86140; 93005; 93880; 95816; J7030; J7512; J8597; 97110; 97116; G0378

== ENCOUNTER → 2020-03-29 | Outpatient (CLI) | payer OTHER ==
[~2020-03-29] MED LIST changes: +AMLO5TAB10 PO; +MECL12.573 PO; +PANT20TA2 PO
--- NOTE | 2020-03-29 12:01 | RAD ---
EXAM: Thyroid Ultrasound INDICATION: Reason: THYROID MASS / Spl. Instructions: / History: ? TECHNIQUE: Real-time ultrasound of the thyroid was performed with permanent freeze-frame documentation. COMPARISON: Soft tissue neck CT with IV contrast 05/03/2018, thyroid ultrasound 03/21/2019 ? FINDINGS: THYROID: Thyroid gland is heterogeneous in echogenicity. ? Right Lobe: 4.1 x 1.7 x 1.4 cm. Coarse round calcification with shadowing in the posterior inferior right thyroid lobe measuring 0.6 x 0.5 x 0.4 cm corresponds with punctate dense calcification in the inferior right thyroid lobe on prior ultrasound. ? Left Lobe: 3.8 x 1.7 x 1.6 cm. Nodule #1. Maximum size: 1.2 cm; Other 2 dimensions 1.1 x 1.1 cm. Location: Posterior midpole. The nodule is almost completely solid (2), isoechoic (1), wider than tall, and has lobulated margins (2) with no definite echogenic foci. Total points = 5. ACR TI-RADS risk category: TR4 (4-6 points): FNA if 1.5 cm, follow-up if 1-1.4 cm in 1, 2, 3, and 5 years. Significant change in size (>= 20% in two dimensions and minimal increase of 2 mm): No. Change in features: No. Change in ACR TI-RADS risk category: No. ? Isthmus: 0.3 cm. ?? ? OTHER: No evidence of adjacent cervical adenopathy. ? IMPRESSION: ? 1. Left thyroid lobe nodule measuring 1.2 cm meets criteria for continued imaging surveillance, next due in one year as described above. FNA recommended at a size equal or greater to 1.5 cm, or if additional suspcious features develop that warrant biopsy even before the 1.5 cm size threshold is met. 2. Benign coarse calcification in the deep right thyroid lobe Electronically signed by: Wendi Hernandez MD (03/29/2020 11:58 AM) [id number]
== END | disposition home or self-care (01) ==
LOC: US 08:44
PROVIDERS: ATTEND Internal Medicine
DX: E04.1 Nontoxic single thyroid nodule (principal); E07.89 Other specified disorders of thyroid
CPT/HCPCS: 76536